=== PATIENT | male | born 1990 | race Two or more races ===

== ENCOUNTER 2019-08-28 14:29 | Emergency (ER) | payer OTHER ==
[~2019-08-28] VITALS: Ht 190.5 cm; Wt 81.6 kg
--- NOTE | 2019-08-28 14:50 | NUR ---
PT AAOX4. C/O NAUSEA, VOMITING SINCE LAST NIGHT. +LOWER ABD PAIN X1 DAY. PLACED ON MONTIOR AND PULSE OX. NO ACUTE DISTRESS NOTED. MD AT BEDSIDE FOR EVAL.
[2019-08-28] MEDS ORDERED: MORPHINE SULFATE INJ 2 MG/ML DISP.SYRIN IV ONE (15:00)
[2019-08-28] MEDS ORDERED: IV NS 0.9% 1,000 ML BAG IV ONE (15:00)
[2019-08-28] MEDS ORDERED: ONDANSETRON HCL/PF 4 MG/2 ML VIAL ONE (15:00)
[2019-08-28] MEDS ORDERED: ONDANSETRON HCL/PF 4 MG/2 ML VIAL IVP ONE (15:00)
[2019-08-28] MEDS ORDERED: MORPHINE SULFATE INJ 4 MG/ML DISP.SYRIN ONE (15:01)
[2019-08-28 15:09] LABS: BASOPHILS % (AUTO) 0.4 % (0.0-2.0); EOSINOPHILS % (AUTO) 2.2 % (0.0-6.0); HEMATOCRIT 43 % (39-51); HEMOGLOBIN 14.5 g/dL (13.5-17.5); LYMPHOCYTES % (AUTO) 11.3 % (20.0-44.0); MEAN CORPUSCULAR HGB CONC 33 g/dl (31.0-36.0); MEAN CORPUSCULAR VOLUME 88 fL (80-96); MONOCYTES # (AUTO) 1.1 /CMM (0.1-1.30); MONOCYTES % (AUTO) 12.3 % (2.0-12.0); NEUTROPHILS # (AUTO) 6.4 /CMM (1.8-8.9); NEUTROPHILS % (AUTO) 73.8 % (43.0-81.0); PLATELET COUNT (AUTO) 287 /CMM (150-450); RED BLOOD CELL COUNT(AUTO) 4.93 MIL/uL (4.5-6.0); WHITE BLOOD COUNT (AUTO) 8.7 K/uL (4.3-11.0)
[2019-08-28 15:10] LABS: APPEARANCE,URINE Clear (CLEAR); BILIRUBIN,URINE Negative (NEGATIVE); BLOOD, URINE Moderate Ery/uL (NEGATIVE); COLOR,URINE Yellow (YELLOW); KETONES,URINE 80 (NEGATIVE); LEUKOCYTE ESTERASE ,URINE Negative (NEGATIVE); NITRITE, URINE Negative (NEGATIVE); PROTEIN,URINE Negative (NEGATIVE); UGLUCOSE Negative (NEGATIVE); UROBILINOGEN,URINE 0.2 EU/dL (0.2)
--- NOTE | 2019-08-28 15:10 | NUR ---
LABS COLLECTED AND SENT TO LAB
[2019-08-28 15:15] LABS: BACTERIA,URINE None seen /HPF (None Seen); SQUAMOUS EPITHELIAL CELL,UR Few /HPF (None Seen); WBC,URINE 0-2 /HPF (0-3)
--- NOTE | 2019-08-28 15:19 | NUR ---
PT BROUGHT TO CT AND BACK
[2019-08-28 15:21] LABS: CALCIUM, SERUM 9.2 mg/dL (8.5-10.1); CREATININE 0.8 mg/dL (0.6-1.3); POTASSIUM 4.1 mmol/L (3.5-5.1)
[2019-08-28 15:27] LABS: ALBUMIN 4.5 g/dL (3.4-5.0); BILIRUBIN,DIRECT 0.1 mg/dL (0.0-0.2); BILIRUBIN,TOTAL 0.6 mg/dL (0.2-1.0); TOTAL PROTEIN, SERUM 8.4 g/dL (6.4-8.2)
--- NOTE | 2019-08-28 15:47 | NUR ---
PT RESTING COMFORTABLY. VSS. PT DENIES PAIN.
[2019-08-28 16:17] VITALS: BP 128/74
--- NOTE | 2019-08-28 16:17 | NUR ---
Patient discharged to home in stable condition. Written and verbal after care instructions given. Patient verbalizes understanding of instruction and RX. IV removed. Catheter intact and site benign. Pressure and 4x4 applied to site. No bleeding noted. Pt ambulated with steady gait. VSS. No pain.
== END 2019-08-28 16:18 | disposition home or self-care (01) ==
LOC: ER 14:34
DX: N39.0 Urinary tract infection, site not specified (principal); R11.2 Nausea with vomiting, unspecified; J45.909 Unspecified asthma, uncomplicated; Z91.040 Latex allergy status
CPT/HCPCS: 36415; 74176; 80048; 80076; 81001; 83690; 85025; 87086; 96361; 96374; 96375; 99284; J2270; J2405; J7030; 81000-TC

== ENCOUNTER 2020-03-21 07:24 | Inpatient (IN) | payer OTHER ==
[~2020-03-21] VITALS: Ht 190.5 cm; Wt 81.6 kg
--- NOTE | 2020-03-21 07:44 | NUR ---
PT BIB SELF C/O RLQ AND LLQ PAIN 01/18, RLQ TENDER TO PALP ON [place]. DENIES VOMITING, REPORTS NAUSEA. REPORT CONSTIPATION AND FEELING BLOATED THIS AM. RESP EVEN UNLABORED. A/OX4. SKIN WARM DRY. IN ER BED 09.
[2020-03-21] MEDS ORDERED: PIPERACILLIN /TAZOBACTAM 3.375 G VIAL IV ONE (07:57)
[2020-03-21] MEDS ORDERED: MORPHINE SULFATE INJ 4 MG/ML DISP.SYRIN ONE (07:57)
[2020-03-21] MEDS ORDERED: ONDANSETRON HCL/PF 4 MG/2 ML VIAL ONE (07:57)
[2020-03-21] MEDS ORDERED: PIPERACILLIN /TAZOBACTAM 3.375 G in IV D5W 50 ML IV ONE (08:00)
[2020-03-21] MEDS ORDERED: MORPHINE SULFATE INJ 2 MG/ML DISP.SYRIN IV ONE (08:00)
[2020-03-21] MEDS ORDERED: IV NS 0.9% 1,000 ML BAG IV ONE (08:00)
[2020-03-21] MEDS ORDERED: ONDANSETRON HCL/PF 4 MG/2 ML VIAL IVP ONE (08:00)
[2020-03-21 08:03] LABS: APPEARANCE,URINE Clear (CLEAR); BACTERIA,URINE Rare /HPF (None Seen); BILIRUBIN,URINE Negative (NEGATIVE); BLOOD, URINE Small Ery/uL (NEGATIVE); COLOR,URINE Yellow (YELLOW); KETONES,URINE Negative (NEGATIVE); LEUKOCYTE ESTERASE ,URINE Negative (NEGATIVE); NITRITE, URINE Negative (NEGATIVE); PROTEIN,URINE Negative (NEGATIVE); UGLUCOSE Negative (NEGATIVE); UROBILINOGEN,URINE 0.2 EU/dL (0.2); WBC,URINE 0-2 /HPF (0-3)
[2020-03-21 08:04] LABS: SQUAMOUS EPITHELIAL CELL,UR None Seen /HPF (None Seen)
[2020-03-21 08:18] LABS: BASOPHILS % (AUTO) 0.4 % (0.0-2.0); EOSINOPHILS % (AUTO) 0.9 % (0.0-6.0); HEMATOCRIT 42 % (39-51); HEMOGLOBIN 14.1 g/dL (13.5-17.5); LYMPHOCYTES % (AUTO) 9.8 % (20.0-44.0); MEAN CORPUSCULAR HGB CONC 34 g/dl (31.0-36.0); MEAN CORPUSCULAR VOLUME 89 fL (80-96); MONOCYTES # (AUTO) 0.9 /CMM (0.1-1.30); MONOCYTES % (AUTO) 8.1 % (2.0-12.0); NEUTROPHILS # (AUTO) 8.5 /CMM (1.8-8.9); NEUTROPHILS % (AUTO) 80.8 % (43.0-81.0); PLATELET COUNT (AUTO) 261 /CMM (150-450); RED BLOOD CELL COUNT(AUTO) 4.71 MIL/uL (4.5-6.0); WHITE BLOOD COUNT (AUTO) 10.5 K/uL (4.3-11.0)
--- NOTE | 2020-03-21 08:45 | NUR ---
REPORT PAIN WELL CONTROLLED WITH MORPHINE ORDERED
[2020-03-21] MEDS ORDERED: LORA10TA68 PO (08:54)
--- NOTE | 2020-03-21 08:54 | NUR ---
DANIELA NASSAR [phone]
--- NOTE | 2020-03-21 08:58 | NUR ---
MOVE SHEET SUBMITTED AND CALLED FOR BED.
--- NOTE | 2020-03-21 09:00 | NUR ---
CALLED [facility]
[2020-03-21 09:10] LABS: CALCIUM, SERUM 8.9 mg/dL (8.5-10.1); CREATININE 0.8 mg/dL (0.6-1.3); POTASSIUM 3.6 mmol/L (3.5-5.1)
[2020-03-21 09:15] LABS: ALBUMIN 4.6 g/dL (3.4-5.0); BILIRUBIN,DIRECT 0.2 mg/dL (0.0-0.2); TOTAL PROTEIN, SERUM 7.8 g/dL (6.4-8.2)
--- NOTE | 2020-03-21 09:27 | NUR ---
CALLED [facility] AGAIN.
--- NOTE | 2020-03-21 10:12 | NUR ---
STILL WAITING TO HEAR FROM INSURANCE.
--- NOTE | 2020-03-21 10:34 | NUR ---
COVID SWAB COLLECTED. PT RESTING QUIETLY, NAD NOTED, NO C/O PAIN AT THIS TIME
--- NOTE | 2020-03-21 11:19 | NUR ---
SPOKE WITH SAUL COPE FOR DR NASSAR. OBTAINED VERBAL ORDER FOR CONSENT FOR LAPAROSCOPIC APPENDECTOMY WITH POSSIBLE OPEN LAPAROTOMY. PRISCA HUGHES, SPEAKING WITH PT ON PHONE.
--- NOTE | 2020-03-21 11:53 | NUR ---
LAB CALLED PT COVID-19 NEG (-)
--- NOTE | 2020-03-21 12:40 | NUR ---
REPORT GIVEN TO KELSI JUAREZ FOR ADMISSION
--- NOTE | 2020-03-21 12:41 | NUR ---
ANTHROPOLOGY FACULTY MEMBER NOTES REPORT RECEIVED FROM BERTHA IN ER DEPARTMENT.
--- NOTE | 2020-03-21 13:08 | NUR ---
PT TRANSPORTED TO [facility] IN STABLE CONDITION
--- NOTE | 2020-03-21 13:20 | NUR ---
PROGRAM DIRECTOR/TRAFFIC DIRECTOR ADMISSION NOTES RECEIVED PT FROM EMERGENCY DEPARTMENT VIA GURNEY WITH 2 PERSON ASSIST. ALERT AND ORIENTED X3. COMPLAIN OF ABDOMINAL PAIN WITH PAIN SCALE OF 3/10. PAIN MEDICATION GIVEN IN ER DEPT. O2 SAT AT 100% IN ROOM AIR. RESPIRATION IS EVEN AND EASY WITH NO SHORTNESS OF BREATH. ASSISTED TO BED FROM ER GURNEWMAN. PT IS ABLE TO AMBULATE IN STEADY GAIT WITH MINIMAL ASSIST. WITH ADMITTING DIAGNOSIS OF ACUTE APENDICITIS. ACCORDING TO MD, PT IS SCHEDULED FOR APPENDECTOMY ON 03/22/2020. PT IS NPO. PT STATED HE IS ALLERGIC TO LATEX. INDEPENDENT WITH BOWEL AND BLADDER HABITS. SKIN IS INTACT WITH NO SKIN OPENINGS. IV SITE TO LEFT AC WITH #20G, INTACT. SAFETY PRECAUTION OBSERVED. CALL LIGHT LEFT WITHIN REACH. WILL CONTINUE TO MONITOR.
[2020-03-21] MEDS ORDERED: ZOLPIDEM TARTRATE 5 MG TABLET PO PRN (13:30)
[2020-03-21] MEDS ORDERED: ACETAMINOPHEN 325 MG TABLET PO PRN (13:30)
[2020-03-21] MEDS ORDERED: MAGNESIUM HYDROXIDE 30 ML UDC PO PRN (13:30)
[2020-03-21] MEDS ORDERED: IV D5/0.45 NACL 1,000 ML IV ONE (13:30)
[2020-03-21] MEDS ORDERED: MAG HYDROX/AL HYDROX/SIMETH 30 ML UDC PO PRN (13:30)
[2020-03-21] MEDS ORDERED: Z GUARD REMEDY 2 OZ OINT TP PRN (13:30)
[2020-03-21] MEDS ORDERED: MORPHINE SULFATE INJ 4 MG/ML DISP.SYRIN IV PRN (13:30)
[2020-03-21] MEDS ORDERED: HYDROCODONE/APAP 5/325MG TABLET PO PRN (13:30)
[2020-03-21] MEDS ORDERED: ONDANSETRON HCL/PF 4 MG/2 ML VIAL IVP PRN (13:30)
[2020-03-21 13:35] VITALS: BP 101/57
[2020-03-21] MEDS: PIPERACILLIN /TAZOBACTAM 3.375 G in IV D5W 100 ML IV SCH ×2 (15:16→22:17)
[2020-03-21 16:14] VITALS: BP 100/59
--- NOTE | 2020-03-21 18:38 | NUR ---
STITCHDOWNS TOE FORMER CLOSING NOTES REMAINS ALERT AND ORIENTED X3. WITH NO C/O PAIN AT THIS TIME. O2 SAT AT 100% IN ROOM AIR. RESPIRATION IS EVEN AND EASY WITH NO SHORTNESS OF BREATH. PT IS ABLE TO AMBULATE IN STEADY GAIT WITH MINIMAL ASSIST. ACCORDING TO MD, PT IS SCHEDULED FOR APPENDECTOMY ON 03/22/2020. PT REMAINS NPO. INDEPENDENT WITH BOWEL AND BLADDER HABITS. IV SITE TO LEFT AC WITH #20G, INTACT. SAFETY PRECAUTION OBSERVED. CALL LIGHT LEFT WITHIN REACH. WILL ENDORSE TO NEXT SHIFT.
--- NOTE | 2020-03-21 19:45 | NUR ---
OPENING RN NOTES RECEIVED PATIENT AWAKE, ALERT AND ORIENTED X4 WITH NO SIGNS OF DISTRESS HE HAS A LAC 20 G THAT IS PATENT, FLUSHED AND INFUSING D51/2 NS AT 125ML/HR. HIS BED IS IN THE LOWEST AND LOCKED POSITION WITH CALL BLAKE IN REACH AND INSTRUCTIONS GIVEN ON HOW TO USE. WILL MONITOR FOR ANY S/S OF INFECTION OR WORSENING APPENDICITIS. NPO INSTRUCTIONS GIVEN.
[2020-03-21 20:00] VITALS: BP 100/59
--- NOTE | 2020-03-21 20:06 | NUR ---
SUPERVISOR BOAT OUTFITTING NOTES PT COMPLAINING OF 7/10 THROBBING HEADACHE. ALSO STATES THAT HE HAS A 4/10 LOWER ABDOMINAL PAIN WITH MOVEMENT. ADMINISTERED PRN NORCO. WILL CONTINUE TO MONITOR.
[2020-03-22 04:00] VITALS: BP 105/59
[2020-03-22] MEDS: PIPERACILLIN /TAZOBACTAM 3.375 G in IV D5W 100 ML IV SCH ×3 (05:06→22:07)
[2020-03-22] MEDS ORDERED: MORPHINE SULFATE INJ 2 MG/ML DISP.SYRIN IV ONE (06:35)
[2020-03-22 06:43] LABS: BASOPHILS % (AUTO) 0.5 % (0.0-2.0); EOSINOPHILS % (AUTO) 2.7 % (0.0-6.0); HEMATOCRIT 40 % (39-51); HEMOGLOBIN 13.2 g/dL (13.5-17.5); LYMPHOCYTES # (AUTO) 1.3 /CMM (0.8-4.8); LYMPHOCYTES % (AUTO) 21.6 % (20.0-44.0); MEAN CORPUSCULAR HGB CONC 33 g/dl (31.0-36.0); MEAN CORPUSCULAR VOLUME 89 fL (80-96); MONOCYTES # (AUTO) 0.6 /CMM (0.1-1.30); MONOCYTES % (AUTO) 10.5 % (2.0-12.0); NEUTROPHILS # (AUTO) 3.9 /CMM (1.8-8.9); NEUTROPHILS % (AUTO) 64.7 % (43.0-81.0); PLATELET COUNT (AUTO) 238 /CMM (150-450)
[2020-03-22 06:58] LABS: CALCIUM, SERUM 8.4 mg/dL (8.5-10.1); CREATININE 0.9 mg/dL (0.6-1.3); MAGNESIUM 2.2 mg/dL (1.8-2.4); PHOSPHORUS 4.2 mg/dL (2.5-4.9); POTASSIUM 3.4 mmol/L (3.5-5.1)
--- NOTE | 2020-03-22 07:30 | NUR ---
DISTRICT ADVISER OPENING NOTES RECEIVED PT ALERT AND ORIENTED X3. NO ACUTE DISTRESS. O2 SAT AT 100% IN ROOM AIR. RESPIRATION IS EVEN AND EASY WITH NO SHORTNESS OF BREATH. PT IS ABLE TO AMBULATE IN STEADY GAIT WITH MINIMAL ASSIST. WITH ADMITTING DIAGNOSIS OF ACUTE APENDICITIS. STILL WAITING FOR APPENDECTOMY. PT REMAINS NPO. INDEPENDENT WITH BOWEL AND BLADDER HABITS. SKIN IS INTACT WITH NO SKIN OPENINGS. IV SITE TO LEFT AC WITH #20G, INTACT. SAFETY PRECAUTION OBSERVED. CALL LIGHT LEFT WITHIN REACH. WILL CONTINUE TO MONITOR.
[2020-03-22 08:00] VITALS: BP 97/50
[2020-03-22] MEDS: POTASSIUM CL. PREMIX PERIPHER. 50 ML IV SCH ×2 (10:25→10:59)
[2020-03-22 12:00] VITALS: BP 107/53
[2020-03-22] MEDS ORDERED: BUPIVACAINE MPF 0.5% W/EPI INJ 30 ML VIAL ONE (14:37)
[2020-03-22] MEDS ORDERED: LIDOCAINE 0.5% HCL 50 ML VIAL ONE (14:37)
[2020-03-22] MEDS ORDERED: FENTANYL PF 250MCG/5ML AMPUL ONE (15:34)
[2020-03-22] MEDS ORDERED: MIDAZOLAM HCL 2 MG/2ML VIAL ONE (15:35)
[2020-03-22] MEDS ORDERED: SUCCINYLCHOLINE CHLORIDE 20 MG/ML VIAL ONE (15:35)
[2020-03-22] MEDS ORDERED: PROPOFOL 20 ML IV ONE (15:35)
[2020-03-22] MEDS ORDERED: ROCURONIUM BROMIDE 50 MG/5 ML ONE (15:35)
[2020-03-22] MEDS ORDERED: FENTANYL PF 100MCG/2ML AMPUL ONE (15:49)
[2020-03-22] MEDS ORDERED: HYDROMORPHONE 1 MG/1 ML DISP.SYRIN IV PRN (16:00)
[2020-03-22] MEDS ORDERED: IV LR 1000 ML 1,000 ML IV PRN (16:00)
[2020-03-22] MEDS ORDERED: HYDROCODONE/APAP 10/325MG TABLET PO PRN (16:00)
--- NOTE | 2020-03-22 17:00 | NUR ---
CHRISTIAN SCIENCE NURSE NOTES PT BACK FROM APPENDECTOMY, FROM OPERATING ROOM WITH NO SIGNS OF DISTRESS.
[2020-03-22] MEDS: GABAPENTIN 300 MG CAPSULE PO SCH (18:01)
[2020-03-22] MEDS: ACETAMINOPHEN 325 MG TABLET PO SCH (18:01)
[2020-03-22] MEDS: IBUPROFEN 400 MG TABLET PO SCH (18:01)
--- NOTE | 2020-03-22 18:47 | NUR ---
CROWN CERAMIST CLOSING NOTES REMAINS ALERT AND ORIENTED X3. WITH NO C/O PAIN AT THIS TIME. O2 SAT AT 100% IN ROOM AIR. RESPIRATION IS EVEN AND EASY WITH NO SHORTNESS OF BREATH. PT IS ABLE TO AMBULATE IN STEADY GAIT WITH MINIMAL ASSIST. APPENDECTOMY DONE IN OR, WITH NO SIGNS OF DISTRESS. PT ON CLEAR LIQUID DIET. IV SITE TO LEFT AC WITH #20G, INTACT. SAFETY PRECAUTION OBSERVED. CALL LIGHT LEFT WITHIN REACH. WILL ENDORSE TO NEXT SHIFT.
[2020-03-22 20:00] VITALS: BP 92/42
[2020-03-23] MEDS: GABAPENTIN 300 MG CAPSULE PO SCH ×2 (02:06→09:42)
[2020-03-23] MEDS: ACETAMINOPHEN 325 MG TABLET PO SCH ×2 (02:06→09:42)
[2020-03-23] MEDS: IBUPROFEN 400 MG TABLET PO SCH ×2 (02:06→09:43)
[2020-03-23 04:00] VITALS: BP 93/53
[2020-03-23] MEDS: PIPERACILLIN /TAZOBACTAM 3.375 G in IV D5W 100 ML IV SCH ×2 (05:46→13:34)
[2020-03-23 06:55] LABS: BASOPHILS % (AUTO) 0.1 % (0.0-2.0); EOSINOPHILS % (AUTO) 0.2 % (0.0-6.0); HEMATOCRIT 38 % (39-51); HEMOGLOBIN 12.8 g/dL (13.5-17.5); LYMPHOCYTES # (AUTO) 1.1 /CMM (0.8-4.8); LYMPHOCYTES % (AUTO) 12.1 % (20.0-44.0); MEAN CORPUSCULAR HGB CONC 34 g/dl (31.0-36.0); MEAN CORPUSCULAR VOLUME 88 fL (80-96); MONOCYTES % (AUTO) 11.2 % (2.0-12.0); NEUTROPHILS # (AUTO) 6.7 /CMM (1.8-8.9); NEUTROPHILS % (AUTO) 76.4 % (43.0-81.0); PLATELET COUNT (AUTO) 253 /CMM (150-450); WHITE BLOOD COUNT (AUTO) 8.7 K/uL (4.3-11.0)
--- NOTE | 2020-03-23 07:25 | NUR ---
MS RN OPENING NOTES RECEIVED PATIENT IN BED, ASLEEP. PATIENT BREATHING ON ROOM AIR; BREATHING IS EVEN AND UNLABORED; NO SOB AT THIS TIME. NO S/S OF PAIN SUCH FACIAL GRIMACING, GUARDING OR MOANING. LAC IV ACCESS G #20 PRESENT AND INTACT RUNNING LR @125 MLS/HR. SAFETY PRECAUTIONS IN PLACE; BED IN LOW POSITION AND LOCKED, RAILS UP X2, CALL LIGHT WITHIN REACH. WILL CONTINUE TO MONITOR PATIENT.
[2020-03-23 08:00] VITALS: BP 95/68
[2020-03-23 08:23] LABS: CALCIUM, SERUM 8.6 mg/dL (8.5-10.1); CREATININE 0.8 mg/dL (0.6-1.3); MAGNESIUM 2.2 mg/dL (1.8-2.4); PHOSPHORUS 3.5 mg/dL (2.5-4.9)
[2020-03-23 12:00] VITALS: BP 105/61
[2020-03-23 12:07] VITALS: BP 105/61
[2020-03-23] MEDS ORDERED: Hydrocodone/Apap 10/325MG PO (15:05)
--- NOTE | 2020-03-23 16:25 | NUR ---
MS AIR VALVE MECHANIC NOTES PATIENT DISCHARGED HOME IN MEDICALLY STABLE CONDITION. PATIENT BREATHING ON ROOM AIR; BREATHING EVEN AND UNLABORED; NO SOB PRESENT. ALL DISCHARGE PAPERWORK READY AND SIGNED BY PATIENT. TEACHING REGARDING PRESCRIBED MEDICATION PROVIDED; PATIENT VERBALIZED UNDERSTANDING. VALUABLES ACCOUNTED FOR AND VALUABLE FORM SIGNED. BEFORE LEAVING THE UNIT IV LINE REMOVED. PATIENT LEFT THE UNIT ACCOMPANIED BY RN AT 1615. OUTSIDE PATIENT WAS MET BY FAMILY IN A PRIVATE CAR.
== END 2020-03-23 19:44 | disposition home or self-care (01) | DRG 343 ==
LOC: ER 07:28 → MEDSG1 12:48
PROVIDERS: ADMIT Student in an Organized Health Care Education/Training Program; ATTEND Student in an Organized Health Care Education/Training Program
PROC: 0DTJ4ZZ Resection of Appendix, Percutaneous Endoscopic Approach (ICD-10-PCS; principal; 2020-03-22)
DX: K35.80 Unspecified acute appendicitis (principal); J45.909 Unspecified asthma, uncomplicated; K59.00 Constipation, unspecified; Z91.040 Latex allergy status; Z79.899 Other long term (current) drug therapy; E87.6 Hypokalemia; D64.9 Anemia, unspecified; F17.200 Nicotine dependence, unspecified, uncomplicated
CPT/HCPCS: 36415; 80048-TC; 80061-TC; 80076-TC; 81000-TC; 83735-TC; 84100-TC; 85025-TC; 85610-TC; 85730-TC; 86850-TC; 87081-TC; 88304-TC; C9803-CS; G0378; J0330; J2250; J2270; J2405; J2543; J2704; J3010; J3480; J3490; J7030; J7050; J7060; J7120